=== PATIENT | female | born 1985 | race Caucasian/White ===

== ENCOUNTER 2017-07-20 12:51 | Emergency (ER) | payer OTHER, SELFPAY ==
[2017-07-20 13:08] VITALS: BP 113/74; PULSE 116; RESP 20; TEMP 37.3; O2SAT 99; BMI 20.9
--- NOTE | 2017-07-20 13:14 | HMH.EDUTC ---
[facility] [place]ression: [place]al illness Disposition: Home, Self-Care Condition on Discharge: Good Instructions: Diarrhea (Alternative Therapy), Diarrhea, DI for Nausea -- Adult, DI for Vomiting -- Adult, DI for Fever (Symptom) -- Adult Additional Instructions: * Monitor Temp. Tylenol and/or Ibuprofen as needed. ER if fever is no less than 101 despite alternating Tylenol and Ibuprofen * Encourage fluids, water, Gatorade, powerade, pedialyte if infant/toddler/or child * Warm salt water gargles for throat irritation *Warm fluids *Sore throat lozenges *Sleep elevated *humidifier or vaporizer Lots of rest Increase fluids, water, Gatorade, powerade You may take over the counter Imodium if needed for diarrhea Follow up IMMEDIATELY for new or worsening of symptoms OR no noticeable improvement over the next 48-72 hours. 911 immediately for any life threatening symptoms such as chest pain or difficulty breathing If your fever continued or gets worse you may want to go to your family doctor and be rechecked for the Influenza, if you checked early before the virus turns you can have a negative result. Referrals: Kit Hanley MD [Primary Care Provider] - Time of Disposition: 13:38 Medical Decision Making Vital Signs: 07/20/17 13:08 Temperature 99.2 F Temperature Source Temporal Artery Scan Pulse Rate [Brachial] 116 H Respiratory Rate 20 Blood Pressure [Left Arm] 113/74 Blood Pressure Mean [Left Arm] 87 Blood Pressure Source [Left Arm] Automatic Cuff Blood Pressure Position [Left Arm] Sitting 02 Sat by Pulse Oximetry 99 Oxygen Delivery Method Room Air - Lab Data Lab Results 07/20/17 13:15: Influenza Type A Ag Negative, Influenza Type B Ag Negative - Manpreet Inquiry Pt receiving controlled substance: No Manpreet was queried for this patient: No [facility] [place] - General Stated complaint: flu like symptoms Mode of Arrival: Ambulatory Source of Information: Patient Limitations: No Limitations Description of Symptoms (Recalled from Triage Doc. by RN): FEELS LIKE FLU SYMPTOMS OR THE STOMACH BUG. 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 (Recalled from RN notes): Yes Resp Symptoms (Recalled from RN notes): Yes Skin Symptoms (Recalled from RN notes): No MS Symptoms (Recalled from RN notes): No Functional Status (Recalled from RN notes): NA - History of Present Illness Provider Complaint: Patient state that she woke up in the middle of the night with diarrhea and not feeling well States that she has had several eppisodes of diarrhea throughout the night and after waking up diarrhea stopped and then she began having a fever State that fever was around 101.0 State that she was worried that she may have the flu and wanted to get checked because she has a 10week old baby that she didn't want to spread it too - Related Data Home Medications Medication Instructions Recorded Confirmed Cetirizine HCl [Zyrtec] 10 mg PO DAILY 07/20/17 07/20/17 [id number]/FA/Omega3/Dha/Fish Oil 1 tab PO DAILY 07/20/17 07/20/17 [ Gummies] Allergies Allergy/AdvReac Type Severity Reaction Status Date / Time No Known Allergies Allergy Verified 07/20/17 13:15 - Worker's Comp Is this a Worker's Comp case?: No [facility] History I have reviewed the patient's past medical history: Yes - *Social History Alcohol Intake: never - Psychiatric History Expresses thoughts of harming self/others: None Suicide Plan Description: No Plan ROS Obtained: Yes All systems reviewed & no additional complaints - Constitutional Constitutional: Reports body ache, Reports chills, Reports fever(s) - ENT Ears, Nose, Mouth, and Throat: Reports sinus pain - Gastrointestinal Gastrointestingal: Reports: diarrhea, nausea Physical Exam - General General appearance: alert, in no apparent distress - ENT ENT exam: Present: normal exam, normal oropharynx, mucous membranes moist, TM's normal bilaterally, normal external ear exam - R
--- NOTE | 2017-07-20 13:20 | ED_ITS ---
[facility] [place] Impression: Viral illness Disposition: Home, Self-Care Condition on Discharge: Good Instructions: Diarrhea (Alternative Therapy), Diarrhea, DI for Nausea -- Adult , DI for Vomiting -- Adult, DI for Fever (Symptom) -- Adult Additional Instructions: * Monitor Temp. Tylenol and/or Ibuprofen as needed. ER if fever is no less than 101 despite alternating Tylenol and Ibuprofen * Encourage fluids, water, Gatorade, powerade, pedialyte if /toddler/or child * Warm salt water gargles for throat irritation *Warm fluids *Sore throat lozenges *Sleep elevated *humidifier or vaporizer Lots of rest Increase fluids, water, Gatorade, powerade You may take over the counter Imodium if needed for diarrhea Follow up IMMEDIATELY for new or worsening of symptoms OR no noticeable improvement over the next 48-72 hours. 911 immediately for any life threatening symptoms such as chest pain or difficulty breathing If your fever continued or gets worse you may want to go to your family doctor and be rechecked for the Influenza, if you checked early before the virus turns you can have a negative result. Referrals: Kit Hanley MD [Primary Care Provider] - Time of Disposition: 13:38 Medical Decision Making Vital Signs: 07/20/17 13:08 Temperature 99.2 F Temperature Source Temporal Artery Scan Pulse Rate [Brachial] 116 H Respiratory Rate 20 Blood Pressure [Left Arm] 113/74 Blood Pressure Mean [Left Arm] 87 Blood Pressure Source [Left Arm] Automatic Cuff Blood Pressure Position [Left Arm] Sitting 02 Sat by Pulse Oximetry 99 Oxygen Delivery Method Room Air - Lab Data Lab Results 07/20/17 13:15: Influenza Type A Ag Negative, Influenza Type B Ag Negative - Manpreet Inquiry Pt receiving controlled substance: No Manpreet was queried for this patient: No [facility] [place] - General Stated complaint: flu like symptoms Mode of Arrival: Ambulatory Source of Information: Patient Limitations: No Limitations Description of Symptoms (Recalled from Triage Doc. by RN): FEELS LIKE FLU SYMPTOMS OR THE STOMACH BUG. 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 (Recalled from RN notes): Yes Resp Symptoms (Recalled from RN notes): Yes Skin Symptoms (Recalled from RN notes): No MS Symptoms (Recalled from RN notes): No Functional Status (Recalled from RN notes): NA - History of Present Illness Provider Complaint: Patient state that she woke up in the middle of the night with diarrhea and not feeling well States that she has had several eppisodes of diarrhea throughout the night and after waking up diarrhea stopped and then she began having a fever State that fever was around 101.0 State that she was worried that she may have the flu and wanted to get checked because she has a 10week old baby that she didn't want to spread it too - Related Data Home Medications Medication Instructions Recorded Confirmed Cetirizine HCl [Zyrtec] 10 mg PO DAILY 07/20/17 07/20/17 [id number]/FA/Omega3/Dha/Fish Oil 1 tab PO DAILY 07/20/17 07/20/17 [ Gummies] Allergies Allergy/AdvReac Type Severity Reaction Status Date / Time No Known Allergies Allergy Verified 07/20/17 13:15 - Worker's Comp Is this a Worker's Comp case?: No [facility] History I have reviewed the patient's past medical history: Yes - *Social History Alcohol Intake: never - Psychiat
[2017-07-20 13:21] LABS: UTC Influenza A Antigen Negative (Negative); UTC Influenza B Antigen Negative (Negative)
== END 2017-07-20 13:43 | disposition home or self-care (01) ==
PROVIDERS: Emergency Provider Nurse Practitioner; PCP Family Medicine
DX: A08.4 Viral intestinal infection, unspecified (principal)
CPT/HCPCS: 87804; 99202

== ENCOUNTER → 2018-05-29 09:53 | Outpatient (POV) | payer BC, SELFPAY | PROVIDERS: Visit Provider Dermatology | DX: Z00.00 Encounter for general adult medical examination without abnormal findings (principal) ==

== ENCOUNTER → 2018-07-17 09:37 | Outpatient (POV) | payer BC, SELFPAY | PROVIDERS: Visit Provider Dermatology | DX: Z00.00 Encounter for general adult medical examination without abnormal findings (principal) ==

== ENCOUNTER → 2019-08-27 08:26 | Outpatient (POV) | payer BC, SELFPAY | PROVIDERS: PCP Dermatology; Visit Provider Dermatology | DX: Z00.00 Encounter for general adult medical examination without abnormal findings (principal) ==

== ENCOUNTER → 2021-11-09 08:21 | Outpatient (POV) | payer BC, SELFPAY | PROVIDERS: Visit Provider Dermatology | DX: Z00.00 Encounter for general adult medical examination without abnormal findings (principal) ==

== ENCOUNTER 2022-03-07 08:05 | Emergency (ER) | payer BC, OTHER, SELFPAY ==
[2022-03-07 08:25] VITALS: BP 107/69; PULSE 88; RESP 20; TEMP 37.1; O2SAT 98; BMI 21.3
--- NOTE | 2022-03-07 08:41 | EXP.UTC ---
Discharge Plan Disposition Patient Disposition: Home, Self-Care Condition: Good Prescriptions Prescriptions: New methylprednisolone [Medrol (Antonio)] 4 mg tablets,dose pack 4 mg PO DAILY Qty: 21 0RF amoxicillin-pot clavulanate 875-125 mg Tablet 1 tab PO Q12H 7 Days Qty: 14 0RF No Action cetirizine [Zyrtec] 10 MG tablet 10 mg PO DAILY Referrals Follow up/Referrals: Provider,Referral, MD [Primary Care Provider] - See instructions Clinical Impressions Clinical Impression: Sinusitis Stand Alone Forms Stand Alone Forms: Work/School Release Discharge ED Provider: Deysi Rosa [facility] [place] HPI General Stated complaint: Possible sinus infection Mode of Arrival: Ambulatory Source of Information: Patient Limitations: No Limitations Time Seen by Provider: 03/07/22 08:40 Description of Symptoms (Recalled from Triage Doc. by RN): PATIENT C/O CONGESTION, RUNNY NOSE, BODY ACHES, AND LEFT EAR PRESSURE X 5 DAYS HEENT Symptoms (Recalled from RN notes): Yes Resp Symptoms (Recalled from RN notes): No Skin Symptoms (Recalled from RN notes): No MS Symptoms (Recalled from RN notes): No Functional Status (Recalled from RN notes): WNL History of Present Illness Provider Complaint: Patient states that child had a viral infection over a week ago so she thought that is what was going on with her so for the last week she has been taking OTC cold medications States that she has been having sinus pain and pressure with thick yellowish green mucous Pressure in her ears and behind her eyes States that since it has been going on so long she came in to get checked to see if she may need antibiotics Related Data Home Medications Medication Instructions Recorded Confirmed cetirizine 10 mg tablet (Zyrtec) 10 mg PO DAILY Allergy symptoms 07/20/17 03/07/22 Previous Rx's Medication Instructions Recorded amoxicillin 875 mg-potassium 1 tab PO Q12H 7 days #14 tabs 03/07/22 clavulanate 125 mg tablet methylprednisolone 4 mg tablets in 4 mg PO DAILY #21 tabs 03/07/22 a dose pack (Medrol (Antonio)) Allergies Allergy/AdvReac Type Severity Reaction Status Date / Time No Known Allergies Allergy Verified 07/20/17 13:15 Worker's Comp Is this a Worker's Comp case?: No PFSH PFSH Social History (Updated 03/07/22 @ 08:35 by Candy Gomez RN) Smoking Status: Unknown if ever smoked alcohol intake: never current occupational status: other Travel in the last 8 weeks: None ROS Obtained: Yes All systems reviewed & no additional complaints except as documented and Yes Systems reviewed as appropriate & no additional complaints except as documented ENT Ears, Nose, Mouth, and Throat: Reports system reviewed and no additional complaints, except as documented, Reports otalgia, Reports sinus pain, Reports sinus pressure and Reports sore throat Cardiovascular Cardiovascular: Reports system reviewed and no additional complaints, except as documented and Reports as per HPI Respiratory Respiratory: Reports system reviewed and no additional complaints, except as documented, Reports as per HPI, Denies shortness of breath and Denies chest congestion Gastrointestinal Gastrointestingal: Reports system reviewed and no additional complaints, except as documented and as per HPI Musculoskeletal Musculoskeletal: Reports system reviewed and no additional complaints, except as documented and Reports as per HPI Physical Exam General General appearance: alert and in no apparent distress Expanded ENT Exam Nose exam: Present sinus tenderness Comment: Pharyngeal erythema noted Respiratory Respiratory exam: Present normal lung sounds bilaterally; Absent respiratory distress or wheezes Cardiovascular Cardiovascular exam: Present regular rate and normal rhythm Abdominal Exam Abdominal exam: Present soft and distention Neurological Exam Neurological exam: Present oriented X3 and normal gait Medical Decision Making Manpreet Inquiry Pt receiving cont
[2022-03-07 08:52] VITALS: BP 107/69; PULSE 88; RESP 20; TEMP 37.1; O2SAT 98
== END 2022-03-07 08:55 | disposition home or self-care (01) ==
PROVIDERS: Emergency Provider Nurse Practitioner
DX: J01.90 Acute sinusitis, unspecified (principal)
CPT/HCPCS: 99212; G0463

== ENCOUNTER 2023-03-28 08:56 | Emergency (ER) | payer OTHER, SELFPAY ==
[2023-03-28 09:10] VITALS: BP 97/37; PULSE 94; RESP 16; TEMP 36.7; O2SAT 98; BMI 20.9
--- NOTE | 2023-03-28 09:17 | EXP.UTC ---
Discharge Plan Disposition Patient Disposition: Home, Self-Care Condition: Good Prescriptions Prescriptions: New prednisone 10 mg tablet 10 mg PO BID 3 Days Qty: 6 0RF amoxicillin [amoxicillin] 875 mg tablet 875 mg PO Q12H Qty: 20 0RF [id number]-nbzhpeqso-PV [Bromfed DM] 2-30-10 mg/5 mL Syrup 5 ml PO Q6H PRN (Reason: Cough) Qty: 240 0RF No Action estradiol-norethindrone acet 1-0.5 mg tablet 1 tab PO DAILY Referrals Follow up/Referrals: Provider,Referral, MD [Primary Care Provider] - See instructions Activity Restrictions/Add. Instructions Additional Instructions/Restrictions: Drink plenty of fluids. Take tylenol or ibuprofen for pain or fever. Take the medications as directed. Follow up with your regular doctor. GO TO THE ER FOR ANY WORSENING SYMPTOMS Throw your tooth brush away and get a new one. Clinical Impressions Clinical Impression: Strep pharyngitis Instructions Patient Instructions: Strep Throat, DI for Strep Throat Discharge ED Provider: Epifanio Virk [facility] General Stated complaint: sore throat, fever Mode of Arrival: Ambulatory Source of Information: Patient Limitations: No Limitations Time Seen by Provider: 03/28/23 09:16 Description of Symptoms (Recalled from Triage Doc. by RN): Pt c/o headache, recurrent fevers and sore throat since Monday. HEENT Symptoms (Recalled from RN notes): Yes Resp Symptoms (Recalled from RN notes): Yes Skin Symptoms (Recalled from RN notes): No MS Symptoms (Recalled from RN notes): No Functional Status (Recalled from RN notes): na History of Present Illness Provider Complaint: She states that she has had a sore throat, chills, fever up to 102, and malaise for the past 2 days. Related Data Home Medications Medication Instructions Recorded Confirmed estradiol-norethindrone acet 1 1 tab PO DAILY hormone replacement 03/28/23 03/28/23 mg-0.5 mg tablet Previous Rx's Medication Instructions Recorded amoxicillin 875 mg tablet 875 mg PO Q12H #20 tabs 03/28/23 cflztjnynzudrgy-yefinxtgglbucxo-TT 5 ml PO Q6H PRN Cough #240 mL 03/28/23 2 mg-30 mg-10 mg/5 mL oral syrup (Bromfed DM) prednisone 10 mg tablet 10 mg PO BID 3 days #6 tabs 03/28/23 Allergies Allergy/AdvReac Type Severity Reaction Status Date / Time No Known Allergies Allergy Verified 07/20/17 13:15 Worker's Comp Is this a Worker's Comp case?: No [facility] Disclaimer: The information contained in this section may have been updated after the patient was seen, as this information can be updated by other users. Social History (Updated 03/07/22 @ 08:35 by Candy Gomez RN) Smoking Status: Unknown if ever smoked alcohol intake: never current occupational status: other Travel in the last 8 weeks: None ROS Obtained: Yes All systems reviewed & no additional complaints except as documented Constitutional Constitutional: Reports chills and Reports fever(s) Eyes Eyes: Denies eye discharge ENT Ears, Nose, Mouth, and Throat: Reports as per HPI Cardiovascular Cardiovascular: Denies chest pain Respiratory Respiratory: Denies chest congestion and Reports cough Gastrointestinal Gastrointestingal: Reports nausea; Denies abdominal pain, constipation, cramping, diarrhea or vomiting Musculoskeletal Musculoskeletal: Denies arthralgias Integumentary/Breasts Skin/Breast: Denies rash Neurologic Neurologic: Denies paresthesias Physical Exam General General appearance: alert and in no apparent distress Head Head exam: atraumatic, normocephalic and normal inspection Eye Eye exam: Present normal appearance, PERRL and EOMI ENT ENT exam: Present mucous membranes moist and normal external ear exam Expanded ENT Exam TM/Canal exam: Bilateral TM: erythema and bulging Nose exam: Absent sinus tenderness Mouth exam: Present normal external inspection; Absent drooling Teeth exam: Present normal inspection Throat exam: Present tonsillar erythem
[2023-03-28 09:18] LABS: UTC Strep Screen (Rapid) Positive (Negative)
[2023-03-28 09:27] VITALS: BP 97/73; PULSE 94; RESP 16; TEMP 36.7; O2SAT 99
== END 2023-03-28 09:28 | disposition home or self-care (01) ==
PROVIDERS: Emergency Provider Nurse Practitioner Family
DX: J02.0 Streptococcal pharyngitis (principal); R50.9 Fever, unspecified; R53.81 Other malaise
CPT/HCPCS: 87880; 99212; 99214; G0463